=== PATIENT | male | born 1940 | race Caucasian/White ===

== ENCOUNTER → 2018-01-06 | Outpatient (CLI) | payer MEDICARE ==
[~2018-01-06] MED LIST: ASPI-1197 PO; AZEL6DRO6 OU; CETI10TA86 PO; CYAN100099 PO; EZET1TAB21 PO; FEBU80TA PO; FISH1CAP49 PO; FOLI0.4T2 PO; FURO40TA5 PO; ISOS1TAB2 PO; LEVO125T11 PO; METO-409 PO; UBID100C10 PO; UBID100C45 PO; VITA400C70 PO
== END | disposition home or self-care (01) ==
LOC: RAH 12:40
PROVIDERS: ATTEND Internal Medicine
DX: K80.20 Calculus of gallbladder without cholecystitis without obstruction (principal); N18.9 Chronic kidney disease, unspecified; J18.9 Pneumonia, unspecified organism; J84.10 Pulmonary fibrosis, unspecified; J98.4 Other disorders of lung; Z95.0 Presence of cardiac pacemaker
CPT/HCPCS: 71046; 71250; 78580; A9540

== ENCOUNTER 2018-07-25 05:49 | Day surgery (SDC) | payer MEDICARE ==
[~2018-07-25 05:49] MED LIST changes: +SODIUM CHLORIDE 0.9% 1000ML 1,000 ML IV ONE
[2018-07-25 06:28] VITALS: BP 131/60
[2018-07-25] MEDS ORDERED: CALC625T73 PO (07:39)
[2018-07-25] MEDS ORDERED: PREG25 PO (07:39)
[2018-07-25] MEDS ORDERED: METO25TA3 PO (07:39)
[2018-07-25] MEDS ORDERED: FERR-82 PO (07:39)
[2018-07-25] MEDS ORDERED: FLUT1BLS3 IH (07:39)
[2018-07-25] MEDS ORDERED: CYAN50008 PO (07:39)
[2018-07-25] MEDS ORDERED: SOTA80TA PO (07:39)
[2018-07-25] MEDS ORDERED: baclofen PO (07:39)
[2018-07-25] MEDS ORDERED: PREDNISONE OU (07:39)
[2018-07-25] MEDS ORDERED: ESOM40CA PO (07:39)
[2018-07-25] MEDS ORDERED: PRED10TA3 PO (07:39)
[2018-07-25 08:04] VITALS: BP 114/60
[2018-07-25 08:09] VITALS: BP 136/77
[2018-07-25 08:30] VITALS: BP 142/73
== END 2018-07-25 08:35 | disposition home or self-care (01) ==
LOC: DAH 05:49 → ENDO 05:49
PROVIDERS: ATTEND Internal Medicine
DX: K29.50 Unspecified chronic gastritis without bleeding (principal); K21.9 Gastro-esophageal reflux disease without esophagitis; K26.9 Duodenal ulcer, unspecified as acute or chronic, without hemorrhage or perforation; K31.89 Other diseases of stomach and duodenum; K22.8 Other specified diseases of esophagus; Z86.73 Personal history of transient ischemic attack (TIA), and cerebral infarction without residual deficits; Z68.35 Body mass index [BMI] 35.0-35.9, adult; Z79.899 Other long term (current) drug therapy; Z98.890 Other specified postprocedural states; Z95.0 Presence of cardiac pacemaker; I25.10 Atherosclerotic heart disease of native coronary artery without angina pectoris; J44.9 Chronic obstructive pulmonary disease, unspecified; I12.9 Hypertensive chronic kidney disease with stage 1 through stage 4 chronic kidney disease, or unspecified chronic kidney disease; N18.3 Chronic kidney disease, stage 3 (moderate); E66.9 Obesity, unspecified; G47.30 Sleep apnea, unspecified
CPT/HCPCS: 43239; 43249; 88305; 88342; 93005; A4606; J7030

== ENCOUNTER 2018-08-15 09:51 | Emergency (ER) | payer MEDICARE ==
[~2018-08-15 09:51] MED LIST changes: -AZEL6DRO6 OU; +CALC625T73 PO; -CETI10TA86 PO; -CYAN100099 PO; +CYAN50008 PO; +ESOM40CA PO; +FERR-82 PO; +FLUT1BLS3 IH; -FOLI0.4T2 PO; -ISOS1TAB2 PO; -METO-409 PO; +METO25TA3 PO; +PRED10TA3 PO; +PREDNISONE OU; +PREG25 PO; -SODIUM CHLORIDE 0.9% 1000ML 1,000 ML IV ONE; +SOTA80TA PO; -UBID100C10 PO; -UBID100C45 PO; -VITA400C70 PO; +baclofen PO
== END 2018-08-15 11:14 | disposition home or self-care (01) ==
LOC: EDH 09:51
DX: S00.12XA Contusion of left eyelid and periocular area, initial encounter (principal); I10 Essential (primary) hypertension; E78.5 Hyperlipidemia, unspecified; Z88.1 Allergy status to other antibiotic agents; Z88.6 Allergy status to analgesic agent; Z87.891 Personal history of nicotine dependence; Z98.890 Other specified postprocedural states; Z95.0 Presence of cardiac pacemaker; W18.39XA Other fall on same level, initial encounter; Y93.01 Activity, walking, marching and hiking; Y92.89 Other specified places as the place of occurrence of the external cause; Y99.8 Other external cause status

== ENCOUNTER 2018-09-09 12:55 | Emergency (ER) | payer MEDICARE ==
[2018-09-09 13:27] LABS: BASOPHILS % (AUTO) 0.5 % (0.0-5.0); HEMATOCRIT 50.7 % (42-54); LYMPHOCYTES % (AUTO) 9.3 % (21.0-51.0); MEAN CORPUSCULAR HEMOGLOBIN 28.4 pg (27.0-33.0); MEAN CORPUSCULAR HGB CONC 32.5 g/dL (32.0-36.0); MEAN CORPUSCULAR VOLUME 87.5 fL (79-99); MONOCYTES % (AUTO) 8.2 % (3.0-13.0); NUCLEATED RED BLOOD CELLS 0.1 % (0.0-0.19); PLATELET COUNT (AUTO) 235 K/uL (130-400); RED CELL DISTRIBUTION WIDTH 16.1 % (11.0-15.5); WHITE BLOOD COUNT (AUTO) 10.9 K/uL (4.8-10.8)
[2018-09-09] MEDS ORDERED: IPRATROPIUM/ALBUTEROL SULFATE 3 ML SOLUTION IH ONE (13:39)
[2018-09-09 13:43] LABS: CREATININE 1.8 mg/dL (0.5-1.5); POTASSIUM 3.9 mmol/L (3.5-5.1)
[2018-09-09 13:44] LABS: INR 0.97 (0.85-1.15); PROTHROMBIN TIME 10.2 SEC (9.6-11.6)
[2018-09-09] MEDS ORDERED: METHYLPREDNISOLONE SOD SUCC 125MG/2ML VIAL ONE (13:44)
[2018-09-09 13:48] LABS: ALBUMIN 3.4 g/dL (3.5-5.0); BILIRUBIN,TOTAL 0.5 mg/dL (0.2-1.0); TOTAL PROTEIN, SERUM 6.6 g/dL (6.0-8.3)
[2018-09-09 14:19] LABS: ABG BASE EXCESS 2.3 mmol/L (-2.0-3.0); ABG HCO3 25.7 mmol/L (21.0-28.0); ABG OXYGEN SATURATION 91.8 % (95.0-99.0); ABG PCO2 37 mmHg (35-48)
[2018-09-09 14:23] LABS: B-TYPE NATRIURETIC PEPTIDE 1710 pg/mL (0-100)
[2018-09-09] MEDS ORDERED: NITROGLYCERIN 1GM/1 INCH PACKET TD ONE (15:08)
[2018-09-09] MEDS ORDERED: FUROSEMIDE 10 MG/ML 4ML VIAL ONE (15:08)
== END 2018-09-09 16:39 | disposition home or self-care (01) ==
LOC: EDH 12:55
DX: I11.0 Hypertensive heart disease with heart failure (principal); I50.9 Heart failure, unspecified; E78.5 Hyperlipidemia, unspecified; Z86.73 Personal history of transient ischemic attack (TIA), and cerebral infarction without residual deficits; Z88.1 Allergy status to other antibiotic agents; Z88.5 Allergy status to narcotic agent
CPT/HCPCS: 36415; 36600; 71045; 80053; 82550; 82803; 83880; 84484 ×2; 85025; 85610; 85730; 93005; 94640; 96374; 96375; 99285; J1940; J2930

== ENCOUNTER 2018-10-27 05:54 | Day surgery (SDC) | payer MEDICARE ==
[2018-10-25 11:40] VITALS: BP 108/53
[2018-10-25 12:20] LABS: BASOPHILS % (AUTO) 0.6 % (0.0-5.0); EOSINOPHILS % (AUTO) 1.8 % (0.0-8.0); HEMATOCRIT 49.3 % (42-54); LYMPHOCYTES % (AUTO) 16.5 % (21.0-51.0); MEAN CORPUSCULAR HEMOGLOBIN 28.7 pg (27.0-33.0); MEAN CORPUSCULAR HGB CONC 32.4 g/dL (32.0-36.0); MEAN CORPUSCULAR VOLUME 88.6 fL (79-99); MONOCYTES % (AUTO) 10.6 % (3.0-13.0); NEUTROPHILS % (AUTO) 70.5 % (40.0-77.0); NUCLEATED RED BLOOD CELLS 0.1 % (0.0-0.19); PLATELET COUNT (AUTO) 247 K/uL (130-400); RED BLOOD CELL COUNT(AUTO) 5.57 MIL/uL (4.50-6.20); RED CELL DISTRIBUTION WIDTH 16.3 % (11.0-15.5); WHITE BLOOD COUNT (AUTO) 7.5 K/uL (4.8-10.8)
[2018-10-25 12:26] LABS: CREATININE 1.8 mg/dL (0.5-1.5); POTASSIUM 3.9 mmol/L (3.5-5.1)
[2018-10-25 12:28] LABS: INR 0.99 (0.85-1.15); PROTHROMBIN TIME 10.4 SEC (9.6-11.6)
--- NOTE | 2018-10-25 15:41 | NUR ---
LABS INFORMED DR. العراقي OF ABNORMAL BMP AND PT NOT COLLECTING UA. ORDERS RECEIVED TO GIVE NS @100ML ON ARRIVAL AM OF PROCEDURE AND COLLECT UA ON AM.
[~2018-10-27] VITALS: Ht 175.3 cm; Wt 109.0 kg
[2018-10-27] VITALS (8 sets, daily range): BP systolic 127–152; BP diastolic 53–79
[~2018-10-27 05:54] MED LIST changes: +AZELASTINE NASAL; +BACL5TAB PO; +CALC625T31 PO; -CALC625T73 PO; +CYCL30DR OU; +CYCL5.5D OU; -ESOM40CA PO; -EZET1TAB21 PO; +EZETIMIBE PO; -FERR-82 PO; -FISH1CAP49 PO; +IRON PO; +PANT40TA25 PO; -PRED10TA3 PO; -PREG25 PO; +SALBUTAMOL IH; +SIMVASTATIN PO; +VITAMIN B3 PO; +VITAMIN B6 PO; +[UNRECOGNIZED DRUG - OTHER] PO; -baclofen PO
[2018-10-27] MEDS ORDERED: SODIUM CHLORIDE 0.9% 1000ML 1,000 ML IV SCH ×2 (06:00→11:37)
[2018-10-27 06:31] LABS: APPEARANCE,URINE Clear (CLEAR); BILIRUBIN,URINE Negative (NEGATIVE); COLOR,URINE Yellow (YELLOW); GLUCOSE, URINE (UA) Negative (NEGATIVE); KETONES,URINE Negative (NEGATIVE); LEUKOCYTE ESTERASE ,URINE Negative (NEGATIVE); NITRATE,URINE Negative (NEGATIVE); OCCULT BLOOD,URINE Negative (NEGATIVE); PH,URINE 5.5 (5.0-8.0); PROTEIN,URINE Negative (NEGATIVE); UROBILINOGEN,URINE 0.2 mg/dL (0.2-1.0)
[2018-10-27] MEDS ORDERED: ALBUTEROL SULFATE 0.083% 2.5 MG/3 ML INH IH SCH (08:00)
[2018-10-27] MEDS ORDERED: LIDOCAINE HCL 2% 20ML ONE (08:37)
[2018-10-27] MEDS ORDERED: NITROGLYCERIN 5 MG/ML 10 ML VIAL IV ONE (08:37)
[2018-10-27] MEDS ORDERED: IOHEXOL 350 MG/ML 100ML INFUS..BTL IV ONE (08:37)
[2018-10-27] MEDS ORDERED: IOHEXOL-350 50ML VIAL IV ONE (08:37)
[2018-10-27] MEDS ORDERED: MIDAZOLAM HCL 1 MG/ML 2ML VIAL ONE (09:18)
[2018-10-27] MEDS ORDERED: EPOPROSTENOL SODIUM IV SCH (10:23)
[2018-10-27] MEDS ORDERED: SODIUM CHLORIDE 0.9% IV SCH (10:23)
--- NOTE | 2018-10-27 15:45 | NUR ---
PT AAOX3, NO C/O PAIN TO RT GROIN, DRESSING D/I NO ACTIVE BLEEDING OR HEMATOMA. PT VITALS STABLE NO DISTRESS. PT STATES HE FEELS BETTER SITTING UP IN A CHAIR AFTER BEDREST. PT ABLE TO TOLERATE FLUIDS AND EAT. PT ABLE TO WALK TO RESTROOM WITH ASSISTANCE FROM AND VOID. PT DRESSED AT BEDSIDE WITH MINIMAL ASSISTANCE FROM , POST CARE INSTRUCTIONS GIVEN TO . PRESCRIPTION AND APPOINTMENT TIMES GIVEN, PT AND BOTH VERBALIZED UNDERSTANDING. PT PLACED IN A WHEELCHAIR, DRIVEN HOME BY DAUGHTER.
== END 2018-10-27 15:45 | disposition home or self-care (01) ==
LOC: DAH 05:54
PROVIDERS: ATTEND Internal Medicine Cardiovascular Disease
DX: I25.5 Ischemic cardiomyopathy (principal); I25.10 Atherosclerotic heart disease of native coronary artery without angina pectoris; I34.0 Nonrheumatic mitral (valve) insufficiency; I13.0 Hypertensive heart and chronic kidney disease with heart failure and stage 1 through stage 4 chronic kidney disease, or unspecified chronic kidney disease; N18.3 Chronic kidney disease, stage 3 (moderate); I50.23 Acute on chronic systolic (congestive) heart failure; I25.2 Old myocardial infarction; I73.9 Peripheral vascular disease, unspecified; G47.33 Obstructive sleep apnea (adult) (pediatric); Z88.5 Allergy status to narcotic agent; Z88.1 Allergy status to other antibiotic agents; Z88.8 Allergy status to other drugs, medicaments and biological substances; Z79.899 Other long term (current) drug therapy; Z79.82 Long term (current) use of aspirin; Z98.890 Other specified postprocedural states; Z86.73 Personal history of transient ischemic attack (TIA), and cerebral infarction without residual deficits; Z87.891 Personal history of nicotine dependence; Z82.49 Family history of ischemic heart disease and other diseases of the circulatory system; Z80.8 Family history of malignant neoplasm of other organs or systems; Z84.1 Family history of disorders of kidney and ureter; Z82.3 Family history of stroke
CPT/HCPCS: 36415; 71045; 80048; 81003; 85025; 85610; 85730; 93005; 93460; 93463; 94640; A4606; C1760; C1769; C1894 ×2; C8924; J1644; J2250; J3490 ×2; J7030; Q9965; Q9967 ×2; 99156; 99157; J1325

== ENCOUNTER → 2019-05-10 | Outpatient (CLI) | payer MEDICARE | END | disposition home or self-care (01) | LOC: RAH 13:33 | PROVIDERS: ATTEND Internal Medicine Cardiovascular Disease | DX: J44.9 Chronic obstructive pulmonary disease, unspecified (principal); I27.0 Primary pulmonary hypertension; Z95.810 Presence of automatic (implantable) cardiac defibrillator | CPT/HCPCS: 71046; 78582; A9540; A9558 ==